=== PATIENT | male | born 1995 | race Two or more races ===

== ENCOUNTER 2022-04-26 08:45 | Emergency (ER) | payer BC, OTHER ==
[~2022-04-26] VITALS: Ht 167.6 cm; Wt 63.5 kg
--- NOTE | 2022-04-26 09:33 | NUR ---
Brought by EDUARDO, severe psychosis-bystander called 911 he was in the street talking to himself
--- NOTE | 2022-04-26 09:34 | NUR ---
The patient admits to being schizophrenia, and currently off his Seroquel and Klonopin
--- NOTE | 2022-04-26 09:34 | NUR ---
The patient admits to being homeless
--- NOTE | 2022-04-26 09:35 | NUR ---
Sitter one-to-one for safety
[2022-04-26] MEDS ORDERED: QUETIAPINE FUMARATE 100 MG TABLET ONE (09:40)
--- NOTE | 2022-04-26 09:48 | NUR ---
Patient did not want to take seroquel at this time, Law aware
[2022-04-26 09:51] LABS: BASOPHILS # (AUTO) 0.1 K/uL (0.0-0.2); BASOPHILS % (AUTO) 0.7 % (0.0-2.0); EOSINOPHILS % (AUTO) 1.4 % (0.0-6.0); HEMATOCRIT 45 % (39-51); HEMOGLOBIN 14.7 g/dL (13.5-17.5); LYMPHOCYTES # (AUTO) 3.5 K/uL (0.8-4.8); LYMPHOCYTES % (AUTO) 38.8 % (20.0-44.0); MEAN CORPUSCULAR HGB CONC 33 g/dl (31.0-36.0); MEAN CORPUSCULAR VOLUME 91 fL (80-96); MONOCYTES # (AUTO) 0.8 K/uL (0.1-1.30); MONOCYTES % (AUTO) 8.4 % (2.0-12.0); NEUTROPHILS # (AUTO) 4.5 K/uL (1.8-8.9); NEUTROPHILS % (AUTO) 50.7 % (43.0-81.0); PLATELET COUNT (AUTO) 310 K/uL (150-450); RED BLOOD CELL COUNT(AUTO) 4.97 MIL/uL (4.5-6.0)
[2022-04-26] MEDS ORDERED: QUETIAPINE FUMARATE 100 MG TABLET PO SCH (10:00)
[2022-04-26] MEDS ORDERED: OLANZAPINE 10 MG VIAL IM ONE ×2 (10:11→10:30)
[2022-04-26 10:13] LABS: CALCIUM, SERUM 9.6 mg/dL (8.5-10.1); CARBON DIOXIDE 30 mmol/L (21-32); CHLORIDE 110 mmol/L (98-107); CREATININE 1.3 mg/dL (0.6-1.3); GLUCOSE 98 mg/dL (74-106); POTASSIUM 4.2 mmol/L (3.5-5.1); SODIUM SERUM 146 mmol/L (136-145); UREA NITROGEN, BLOOD 14 mg/dL (7-18)
--- NOTE | 2022-04-26 10:17 | NUR ---
IM Zyprexa given-right thigh
[2022-04-26 10:19] LABS: ALANINE AMINOTRANSFERASE 50 U/L (12-78); ALBUMIN 4.1 g/dL (3.4-5.0); ALKALINE PHOSPHATASE 79 U/L (46-116); ASPARTATE AMINOTRANSFERASE 26 U/L (15-37); BILIRUBIN,DIRECT 0.1 mg/dL (0.0-0.2); BILIRUBIN,TOTAL 0.6 mg/dL (0.2-1.0); TOTAL PROTEIN, SERUM 7.6 g/dL (6.4-8.2)
--- NOTE | 2022-04-26 10:22 | NUR ---
URINE SAMPLE COLLECTED AND SENT TO LAB
[2022-04-26 10:28] LABS: ACETAMINOPHEN < 10 ug/ml (10-30); ALCOHOL, BLOOD < 3 mg/dL (0-0)
[2022-04-26 10:54] LABS: BILIRUBIN,URINE SMALL (NEGATIVE); COLOR,URINE YELLOW (YELLOW); LEUKOCYTE ESTERASE ,URINE NEGATIVE (NEGATIVE); NITRITE, URINE NEGATIVE (NEGATIVE); PROTEIN,URINE TRACE mg/dl (NEGATIVE); UGLUCOSE NEGATIVE (NEGATIVE); UROBILINOGEN,URINE 0.2 EU/dL (0.2)
[2022-04-26 11:06] LABS: BACTERIA,URINE None seen /HPF (None Seen); CALCIUM OXALATE CRYSTALS,UR Few /HPF (None Seen); MUCUS,URINE Few /LPF (None Seen); RBC,URINE 0-2 /HPF (0-2); SQUAMOUS EPITHELIAL CELL,UR Rare /HPF (None Seen); WBC,URINE 0-2 /HPF (0-3)
--- NOTE | 2022-04-26 11:17 | NUR ---
SW Note: SW attempted to meet with patient for possible homelessness and substance abuse. Pt was asleep and was unable to conduct an assessment at this time.
--- NOTE | 2022-04-26 14:05 | NUR ---
pt [id number], provided w/ meal tray. stable vitals
[2022-04-26] MEDS ORDERED: QUET100T PO (14:54)
--- NOTE | 2022-04-26 15:00 | NUR ---
pt aao, ambulatory w. steady gait. medically and psych cleared. discharged in stable condition.
[2022-04-26 15:01] VITALS: BP 136/98
== END 2022-04-26 15:02 | disposition home or self-care (01) ==
LOC: ER 08:51
DX: R46.1 Bizarre personal appearance (principal); Z59.00 Homelessness unspecified; Z79.899 Other long term (current) drug therapy
CPT/HCPCS: 99283; 96372; 85025; 80048; 80076; 81001; 36415; 80143; 80320; 80307; J3490; G0480